=== PATIENT | female | born 1990 | race Asian ===

== ENCOUNTER 2021-09-13 11:37 | Inpatient (IN) | payer BC, MEDICAID ==
[2021-09-13] MEDS ORDERED: Misoprostol 200 MCG TAB PR PRN (12:08)
[2021-09-13] MEDS ORDERED: Carboprost 250 MCG/ML AMP IM PRN (12:08)
[2021-09-13] MEDS ORDERED: Ondansetron PF 4 MG/2 ML Vial IVP PRN ×3 (12:08→20:30)
[2021-09-13] MEDS ORDERED: HYDROcodone/Acetaminophen 5/325 mg Tablet PO PRN ×3 (12:08→20:30)
[2021-09-13] MEDS ORDERED: Methylergonovine 0.2 MG/ML VIAL IM PRN ×2 (12:08→20:30)
[2021-09-13] MEDS ORDERED: Butorphanol Tartrate 1 MG/ML VIAL SLOW IVP PRN (12:08)
[2021-09-13] MEDS ORDERED: Lidocaine 1% (PF) 30 ML VIAL SC PRN (12:08)
[2021-09-13] MEDS ORDERED: Acetaminophen 500 MG TAB PO PRN (12:08)
[2021-09-13] MEDS ORDERED: Diphenoxylate HCl/Atropine Tablet PO PRN (12:08)
[2021-09-13] MEDS ORDERED: Ibuprofen 800 MG TAB PO PRN (12:08)
[2021-09-13] MEDS ORDERED: hydrALAZINE 20 MG/ML VIAL SLOW IVP PRN ×2 (12:08→20:30)
[2021-09-13] MEDS ORDERED: Promethazine HCl 25 MG/ML VIAL IM PRN ×3 (12:08→20:30)
[2021-09-13] MEDS ORDERED: NS w/ Oxytocin 30 units 500 ML IV SCH ×3 (12:15→20:30)
[2021-09-13 13:12] LABS: Hemoglobin 13.3 g/dL (12.0-15.5); Mean Corpuscular HGB CONC 33.8 g/dL (32.0-36.0); Mean Corpuscular Hemoglobin 29.1 pg (27.0-33.0); Mean Platelet Volume 10.6 fl (7.4-10.4); Platelet Count 283 10x3/uL (150-450); RBC Distribution Width 12.5 % (11.5-14.5); Red Blood Cell (RBC) Count 4.57 10x6/uL (3.90-5.03); White Blood Cell (WBC) Count 12.1 10x3/uL (3.5-10.5)
[2021-09-13] MEDS ORDERED: NS w/ Oxytocin 30 units 500 ML ONE (13:24)
[2021-09-13] MEDS ORDERED: Fentanyl 2 mcg/Bup 0.1% Cadd 100 ML ONE (13:33)
[2021-09-13 13:37] LABS: Hep B Surf Ag Non-Reactive S/CO (NonReactive); Syphilis Antibody Nonreactive (Nonreactive); Syphilis Antibody Index 0.05 S/CO (<1.00 Non-Reactive)
[2021-09-13 13:51] LABS: HBSAg Index 0.21 S/CO (0-0.99)
[2021-09-13] MEDS ORDERED: Hydrocerin (Eucerin) Cream 120 gm Jar TOP PRN (14:49)
[2021-09-13] MEDS ORDERED: ePHEDrine Sulfate 50 MG/10 ML VIAL SLOW IVP PRN (14:49)
[2021-09-13] MEDS ORDERED: diphenhydrAMINE 50 MG/ML VIAL IVP PRN (14:49)
[2021-09-13] MEDS ORDERED: Acetaminophen 325 MG TAB PO PRN (14:49)
[2021-09-13] MEDS ORDERED: Lactated Ringer's 500 ML IV PRN (14:49)
[2021-09-13] MEDS ORDERED: Naloxone HCl 0.4 mg/ml Vial IVP PRN ×2 (14:49)
[2021-09-13 15:00] VITALS: BMI 28.5
[2021-09-13] MEDS ORDERED: Communication Order-Pharmacy FS SCH (15:00)
[2021-09-13] MEDS ORDERED: Fentanyl 2 mcg/Bupivacaine 0.1% Cassette 100 ML EPIDURAL SCH (15:00)
[2021-09-13] MEDS: Lactated Ringer's 1,000 ML IV SCH ×2 (19:42→22:07)
[2021-09-13 20:24] LABS: SARS-CoV-2 NAA Rapid Test Not Detected (NotDetected)
[2021-09-13] MEDS ORDERED: Milk Of Magnesia 30 ML UDCUP PO PRN (20:30)
[2021-09-13] MEDS ORDERED: Boostrix 0.5 ML (Tdap) VIAL IM ONE (20:30)
[2021-09-13] MEDS ORDERED: Preparation H Ointment 28 GM TUBE PR PRN (20:30)
[2021-09-13] MEDS ORDERED: diphenhydrAMINE 25 MG CAP PO PRN (20:30)
[2021-09-13] MEDS ORDERED: Lanolin Ointment 7 GM TUBE TOP PRN (20:30)
[2021-09-13] MEDS ORDERED: Bisacodyl 10 MG SUPP PR PRN (20:30)
[2021-09-13] MEDS: Ibuprofen 800 MG TAB PO SCH (22:06)
[2021-09-13] MEDS: Docusate 100 MG CAP PO SCH (22:08)
[2021-09-14] MEDS: Ibuprofen 800 MG TAB PO SCH ×3 (06:34→21:20)
[2021-09-14] MEDS: Docusate 100 MG CAP PO SCH ×2 (09:32→21:20)
[2021-09-14] MEDS: Prenatal Vitamin 1 TAB PO SCH (09:32)
[2021-09-14] MEDS: Ferrous Sulfate 325 MG TAB PO SCH ×2 (09:32→18:27)
[2021-09-15] MEDS: Ibuprofen 800 MG TAB PO SCH ×2 (05:59→14:15)
[2021-09-15 08:01] VITALS: BP 110/51; TEMP 98.3
[2021-09-15] MEDS: Ferrous Sulfate 325 MG TAB PO SCH (08:21)
[2021-09-15] MEDS: Docusate 100 MG CAP PO SCH (09:03)
[2021-09-15] MEDS: Prenatal Vitamin 1 TAB PO SCH (09:03)
== END 2021-09-15 15:40 | disposition home or self-care (01) | DRG 807 ==
LOC: CSHLD 11:37 → CSHPED 20:21
PROVIDERS: ADMIT Family Medicine; ATTEND Family Medicine
PROC: 10E0XZZ Delivery of Products of Conception, External Approach (ICD-10-PCS; principal; 2021-09-13)
PROC: 10907ZC Drainage of Amniotic Fluid, Therapeutic from Products of Conception, Via Natural or Artificial Opening (ICD-10-PCS; 2021-09-13)
PROC: 0W8NXZZ Division of Female Perineum, External Approach (ICD-10-PCS; 2021-09-13)
PROC: 3E0334Z Introduction of Serum, Toxoid and Vaccine into Peripheral Vein, Percutaneous Approach (ICD-10-PCS; 2021-09-13)
DX: O80 Encounter for full-term uncomplicated delivery (principal); Z37.0 Single live birth; Z3A.39 39 weeks gestation of pregnancy; Z20.822 Contact with and (suspected) exposure to COVID-19
CPT/HCPCS: 36415; 51702; 85027; 85461; 86780; 86850; 86870; 86900; 86901; 87340; 90384; 96372; J2590; U0002